=== PATIENT | male | born 1980 | race Caucasian/White ===

== ENCOUNTER 2020-12-07 20:06 | Emergency (ER) | payer SELFPAY ==
[~2020-12-07] VITALS: Ht 188 cm; Wt 77.8 kg
[2020-12-07 21:46] LABS: BASOPHILS % (AUTO) 1 % (0-1); EOSINOPHILS % (AUTO) 1 % (1-7); LYMPHOCYTES % (AUTO) 30 % (22-44); MEAN CORPUSCULAR HEMOGLOBIN 30.8 pg (27.5-34.5); MEAN CORPUSCULAR HGB CONC 34.6 g/dL (33.2-36.2); MEAN PLATELET VOLUME 6.8 fL (7.4-10.4); MONOCYTES % (AUTO) 10 % (2-9); NEUTROPHILS % (AUTO) 58 % (42-75); PLATELET COUNT 311 x10^3/uL (130-400); RED BLOOD COUNT 5.13 x10^6/uL (4.38-5.82); RED CELL DISTRIBUTION WIDTH 13.5 % (9.4-14.8)
[2020-12-07 21:48] LABS: MD NO
[2020-12-07 21:58] LABS: ALANINE AMINOTRANSFERASE 24 U/L (12-78); ALBUMIN 4.2 g/dL (3.4-5.0); ANION GAP 5 mmol/L (5-15); CHLORIDE 106 mmol/L (98-107); CREATININE 1.08 mg/dL (0.7-1.3); SALICYLATE LEVEL < 1.7 mg/dL (2.8-20.0)
[2020-12-07 22:08] LABS: ALKALINE PHOSPHATASE 54 U/L (45-117); BILIRUBIN,TOTAL 0.6 mg/dL (0.2-1.0); TOTAL PROTEIN 8.4 g/dL (6.4-8.2)
[2020-12-07 22:21] LABS: FREE T4 (FREE THYROXINE) 1.11 ng/dL (0.76-1.46)
--- NOTE | 2020-12-07 23:47 | NUR ---
[employer]: PT WALKED BACK FROM LOBBY TO ROOM. STEADY UPON AMBULATION. NO ACUTE DISTRESS NOTED AT THIS TIME.
--- NOTE | 2020-12-08 00:05 | NUR ---
PT PRESENTS TO ER FOR ANXIETY, PT DENIES SI/SA RIGHT NOW, BUT HAS HAD THOUGHTS IN THE PAST. PT STATES THAT HE GAVE THE WRONG NAME AT ADMITTING DUE TO BEING PARANOID AND THINKING PEOPLE ARE AFTER HIM. PT GAVE HIS CORRECTED NAME AND BIRTHDAY. PT IN GOWN AND HOOKED TO MONITORS, PT RESTING ON [employer].
[2020-12-08] MEDS ORDERED: LORazepam 1MG TABLET ONE (00:15)
[2020-12-08] MEDS ORDERED: LORazepam 1MG TABLET PO ONE (00:30)
[2020-12-08 00:33] LABS: AMPHETAMINE SCREEN, URINE Positive (Negative); BARBITURATE SCREEN, URINE Negative (Negative); BENZODIAZEPINE SCREEN, URINE Negative (Negative); CANNABINOID SCREEN, URINE Positive (Negative); COCAINE SCREEN, URINE Negative (Negative); METHADONE SCREEN, URINE Negative (Negative); OPIATE SCREEN, URINE Negative (Negative)
--- NOTE | 2020-12-08 01:07 | NUR ---
PT RESTING COMFORTABLY ON GURNEY, DENIES NEEDS AT THIS TIME
--- NOTE | 2020-12-08 02:31 | NUR ---
preceptor rn: pt ambulated to the bathroom independently with a steady gait.
--- NOTE | 2020-12-08 02:54 | NUR ---
preceptor RN: pt sitting on gurney watching tv. polite and cooperative. provided snacks while waiting for telepsych to initiate over monitor, which is at bedside.
--- NOTE | 2020-12-08 04:17 | NUR ---
ROMANA STATED THAT PT IS DRUG SEEKING AND THAT HE CAN BE D/C.
[2020-12-08 04:58] VITALS: BP 134/71
--- NOTE | 2020-12-08 05:06 | NUR ---
Patient given discharge instructions and they have confirmed that they understand the instructions. Patient ambulatory with steady gait.
== END 2020-12-08 05:17 | disposition home or self-care (01) ==
LOC: EDBD 22:41 → ED 22:41
DX: F41.1 Generalized anxiety disorder (principal); F17.210 Nicotine dependence, cigarettes, uncomplicated; R00.0 Tachycardia, unspecified
CPT/HCPCS: 36415; 80053; 80299; 80307; 80320; 80329; 84439; 84443; 85025; 93005; 99284; G0480